=== PATIENT | female | born 2000 | race Caucasian/White ===

== ENCOUNTER 2019-08-27 11:14 | Emergency (ER) | payer OTHER ==
[2019-08-27 11:43] LABS: BILIRUBIN,URINE NEGATIVE (NEGATIVE); GLUCOSE, URINE (UA) NEGATIVE (NEGATIVE); KETONES,URINE (UA) NEGATIVE (NEGATIVE); LEUKOCYTE ESTERASE, URINE NEGATIVE (NEGATIVE); NITRITE,URINE NEGATIVE (NEGATIVE); OCCULT BLOOD,URINE NEGATIVE (NEGATIVE); PROTEIN,URINE NEGATIVE (NEGATIVE); UROBILINOGEN,URINE 0.2 (NORMAL) E.U./dL (NORMAL)
[2019-08-27 11:45] LABS: CLARITY,URINE CLEAR (CLEAR); HCG UR QUAL NEGATIVE
[2019-08-27] MEDS ORDERED: FAMOTIDINE 20 MG/2 ML VIAL IVP STA (12:07)
[2019-08-27] MEDS ORDERED: SODIUM CHLORIDE 0.9% 1,000 ML IV ONE (12:07)
--- NOTE | 2019-08-27 12:07 | ED Physician Documentation ---
PD HPI NVD - Stated complaint Stated Complaint: FEVER/VOMITING BLOOD - Chief complaint Chief Complaint: Abd Pain - History obtained from History obtained from: Patient - History of Present Illness Timing - onset: How many days ago (3) Timing - duration: Days Timing - details: Gradual onset Associated symptoms: Fever, Abdominal pain, Hematemesis, Dizzy. No: Near syncope / syncope Contributing factors: No: Sick contact, Bad food Similar symptoms before: Work up / diagnostics Recently seen: Clinic - Additonal information Additional information: This is a 18-year-old who presents with complaints for the past 3 days she is been vomiting and had a fever up to 103 2 days ago. Today she started vomiting what looked red and then was coffee-ground so they sent her here from the [facility] based on that description of her vomiting. She says she is dizzy whenever she is throwing up. She is been experiencing a lot of "stomach problems" since at least March. She is been vomiting. She is been worked up with a pelvic ultrasound and CT of the abdomen and pelvis none of which have shown anything. All of these have been done on the [facility]. The patient is taking ibuprofen took 400 mg around 630 this morning. She also took DayQuil this morning just because she thinks that makes her feel better. She ate some saltine crackers. Denies or STDs although her last menstrual. Was July 22 she is irregular even though she is on oral contraceptives. Patient has tried Zofran with some relief of her symptoms as well as Tums. To her knowledge she has not been tested for H. pylori or had an endoscopy. She is not currently taking any acid blockers. She denies sore throat, coughing, stuffy nose or loss of consciousness. Review of Systems Constitutional: reports: Fever Nose: denies: Congestion Throat: denies: Sore throat Cardiac: denies: Chest pain / pressure, Palpitations Respiratory: denies: Dyspnea, Cough GI: reports: Abdominal Pain, Nausea, Vomiting, Hematemesis : reports: Irregular menses. denies: Dysuria Skin: denies: Rash Neurologic: denies: Focal weakness, Syncope PD PAST MEDICAL HISTORY - Past Medical History Past Medical History: No - Past Surgical History Past Surgical History: Yes HEENT: Tonsil/Adenoidectomy - Present Medications Home Medications: Ambulatory Orders Medication Instructions Recorded Confirmed Famotidine [Pepcid] 20 mg PO BID #60 tablet 08/27/19 Ondansetron Odt [Zofran] 4 mg TL Q6H PRN #10 tablet 08/27/19 - Allergies Allergies/Adverse Reactions: Allergies Allergy/AdvReac Type Severity Reaction Status Date / Time Penicillins Allergy Rash Verified 08/27/19 11:30 - Social History Does the pt smoke?: No Smoking Status: Never smoker Does the pt drink ETOH?: No Does the pt have substance abuse?: No - Immunizations Immunizations are current?: Yes PD ED PE NORMAL - Vitals Vital signs reviewed: Yes - General General: Alert and oriented X 3, No acute distress, Well developed/nourished - HEENT HEENT: Atraumatic, PERRL, Moist mucous membranes, Other (No scleral icterus) - Neck Neck: Thyroid normal - Cardiac Cardiac: RRR, No murmur, Strong equal pulses - Respiratory Respiratory: No respiratory distress, Clear bilaterally - Abdomen Abdomen: Normal bowel sounds, Soft, Non tender, No organomegaly - Derm Derm: Normal color, Warm and dry, No rash - Extremities Extremities: No deformity, No edema - Neuro Neuro: Alert and oriented X 3, No motor deficit, No sensory deficit, Normal speech - Psych Psych: Normal mood, Normal affect Results - Vitals Vitals: Vital Signs - 24 hr 08/27/19 08/27/19 08/27/19 11:18 11:21 13:47 Temperature 36.8 C 36.4 C L Heart Rate 71 58 L 51 L Respiratory 14 16 18 Rate Blood Pressure 110/64 102/61 105/63 O2 Saturation 100 100 97 Oxygen O2 Source Room air - Labs Labs: Laboratory Tests 08/27/19 08/27/19 08/27/19 11:30 12:05 12:05 WBC 8.6 RBC 4.45 Hgb 12.0 Hct 36.3 L MCV 81.6 MCH 27.0 MCHC 33.1 RDW 14.3 Plt Count 327 MPV 8.4 Neut # (Auto) 4.6 Lymph # (Auto) 2.3 [place] # (Auto) 0.4 Eos # (Auto) 1.1 H Baso # (Auto) 0.1 Absolute Nucleated RBC 0.00 Nucleated RBC % 0.0 Manual Slide Review Indicated RBC Morph Micro Appear 2+ ANISOCYTOSIS Sodium 137 Potassium 3.8 Chloride 100 L Carbon Dioxide 27 Anion Gap 10.0 BUN 15 Creatinine 0.7 Estimated GFR (MDRD) 108 Glucose 104 H Calcium 9.2 Total Bilirubin 0.8 AST 18 ALT 14 Alkaline Phosphatase 49 Total Protein 7.5 Albumin 4.2 Globulin 3.3 Albumin/Globulin Ratio 1.3 Lipase 29 Urine Color YELLOW Urine Clarity CLEAR Urine pH 7.0 Ur Specific [place] 1.020 Urine Protein NEGATIVE Urine Glucose (UA) NEGATIVE Urine Ketones NEGATIVE Urine Occult Blood NEGATIVE Urine Nitrite NEGATIVE Urine Bilirubin NEGATIVE Urine Urobilinogen 0.2 (NORMAL) Ur Leukocyte Esterase NEGATIVE Ur Microscopic Review NOT INDICATED Urine Culture Comments NOT INDICATED Urine HCG, Qual NEGATIVE PD MEDICAL DECISION MAKING - ED course Complexity details: reviewed results, re-evaluated patient, d/w patient ED course: Patient received Zofran orally and Pepcid orally. Attempts at IV access were not successful. Her white blood cell count is normal hemoglobin is normal. She is not and has a negative urinalysis. Chemistries are normal and normal lipase. Patient says she is having pain in the right lower quadrant but on examination she has no tenderness or guarding. [place] CT [place] I do not see any further indication for imaging at this time. She is discharged with instructions to eat a very bland diet for the next 24 hours. She started on Pepcid and given a prescription for Zofran. [place] if the pain is continuing or return here if her symptoms are significantly worsening. Departure - Departure Disposition: 01 Home, Self Care Clinical Impression: Vomiting Qualifiers: Vomiting type: unspecified Vomiting Intractability: unspecified Nausea presence: unspecified Qualified Code(s): R11.10 - Vomiting, unspecified Abdominal pain Qualifiers: Abdominal location: unspecified location Qualified Code(s): R10.9 - Unspecified abdominal pain Condition: Good Instructions: ED Abdominal Pain Unkn Cause, ED Nausea Vomiting Follow-Up: [facility] [Provider Group] Prescriptions: Famotidine [Pepcid] 20 mg PO BID #60 tablet Ondansetron Odt [Zofran] 4 mg TL Q6H PRN #10 tablet PRN Reason: Nausea / Vomiting Comments: Eat a BRAT (bananas, rice, applesauce, toast) diet for the next 24 hours. Take the Pepcid twice a day as prescribed. Use Zofran if needed for nausea or vomiting. If you see bright red blood in any emesis you should return to the emergency department for reevaluation. Otherwise [place] Discharge Date/Time: 08/27/19 14:03
[2019-08-27 12:12] LABS: BASOPHILS # (AUTO) 0.1 10^3/uL (0.0-0.1); EOSINOPHILS # (AUTO) 1.1 10^3/uL (0.0-0.7); EOSINOPHILS % (AUTO) 13.2 %; LYMPHOCYTES # (AUTO) 2.3 10^3/uL (1.5-3.5); MEAN CORPUSCULAR HGB CONC 33.1 g/dL (32.0-36.0); MEAN CORPUSCULAR VOLUME 81.6 fL (81.0-99.0); MEAN PLATELET VOLUME 8.4 fL (7.9-10.8); MONOCYTES # (AUTO) 0.4 10^3/uL (0.0-1.0); MONOCYTES % (AUTO) 4.8 %; NEUTROPHILS # (AUTO) 4.6 10^3/uL (1.5-6.6); NEUTROPHILS % (AUTO) 53.7 %; PLT - PLATELET COUNT 327 10^3/uL (130-450); RED BLOOD COUNT 4.45 10^6/uL (4.20-5.40); RED CELL DISTRIBUTION WIDTH 14.3 % (12.0-15.0); WHITE BLOOD COUNT 8.6 x10^3/uL (4.8-10.8)
[2019-08-27 12:25] LABS: ALBUMIN 4.2 g/dL (3.2-5.5); ALBUMIN/GLOBULIN RATIO 1.3 (1.0-2.2); BILIRUBIN,TOTAL 0.8 mg/dL (0.2-1.0); CALCIUM 9.2 mg/dL (8.5-10.3); CREATININE 0.7 mg/dL (0.4-1.0); TOTAL PROTEIN 7.5 g/dL (6.7-8.2)
[2019-08-27] MEDS ORDERED: ONDANSETRON ODT 4 MG TABLET TL STA (12:43)
[2019-08-27] MEDS ORDERED: FAMOTIDINE 20 MG TABLET PO STA (12:43)
[2019-08-27 12:45] LABS: RBC MORPHOLOGY (MULTIPLE) 2+ ANISOCYTOSIS (NORMAL)
[2019-08-27 13:48] VITALS: BP 105/63
== END 2019-08-27 14:03 | disposition home or self-care (01) ==
LOC: ED 11:14
DX: R11.10 Vomiting, unspecified (principal); R10.9 Unspecified abdominal pain
CPT/HCPCS: 36415; 80053; 81003; 81025; 83690; 85025; 99283; A9270; Q0162; 81001; 87086

== ENCOUNTER 2019-10-27 11:56 | Emergency (ER) | payer OTHER ==
[2019-10-27 12:08] VITALS: BP 129/78
[2019-10-27 12:56] LABS: BASOPHILS # (AUTO) 0.1 10^3/uL (0.0-0.1); BASOPHILS % (AUTO) 0.9 %; EOSINOPHILS # (AUTO) 0.5 10^3/uL (0.0-0.7); EOSINOPHILS % (AUTO) 5.7 %; HGB - HEMOGLOBIN 12.2 g/dL (12.0-16.0); LYMPHOCYTES # (AUTO) 2.4 10^3/uL (1.5-3.5); LYMPHOCYTES % (AUTO) 28.2 %; MEAN CORPUSCULAR HEMOGLOBIN 27.5 pg (27.0-31.0); MEAN CORPUSCULAR HGB CONC 33.2 g/dL (32.0-36.0); MEAN CORPUSCULAR VOLUME 82.9 fL (81.0-99.0); MEAN PLATELET VOLUME 8.2 fL (7.9-10.8); MONOCYTES # (AUTO) 0.5 10^3/uL (0.0-1.0); MONOCYTES % (AUTO) 5.6 %; NEUTROPHILS % (AUTO) 59.2 %; PLT - PLATELET COUNT 355 10^3/uL (130-450); RED BLOOD COUNT 4.44 10^6/uL (4.20-5.40); WHITE BLOOD COUNT 8.4 x10^3/uL (4.8-10.8)
[2019-10-27 13:10] LABS: ACETAMINOPHEN < 10 ug/mL (10-30); ALBUMIN 4.3 g/dL (3.2-5.5); ALBUMIN/GLOBULIN RATIO 1.4 (1.0-2.2); ALKALINE PHOSPHATASE 64 IU/L (42-121); ALT ALANINE AMINOTRANSFERASE 16 IU/L (10-60); AST ASPARTATE AMINOTRANSFERASE 18 IU/L (10-42); BILIRUBIN,TOTAL 0.6 mg/dL (0.2-1.0); BUN - BLOOD UREA NITROGEN 14 mg/dL (6-20); CALCIUM 9.5 mg/dL (8.5-10.3); CARBON DIOXIDE - CO2 26 mmol/L (21-32); CHLORIDE 107 mmol/L (101-111); CREATININE 0.6 mg/dL (0.4-1.0); GFR - MDRD 127 (>89); GLUCOSE 110 mg/dL (70-100); LIPASE 32 U/L (22-51); SALICYLATE < 6.0 mg/dL; SODIUM 141 mmol/L (135-145); TOTAL PROTEIN 7.4 g/dL (6.7-8.2)
[2019-10-27 13:18] LABS: MUDS CUTOFF CONCENTRATIONS CUTOFF CONC BELOW:
--- NOTE | 2019-10-27 13:18 | ED Physician Documentation ---
PD HPI [facility]AL NEURO - Stated complaint Stated Complaint: TREMORS - Chief complaint Chief Complaint: Neuro - History obtained from History obtained from: Patient (2 days ago she started sertraline, 50 mg. Starting last night she has had muscle spasms and involuntary shaking. Its better now than it was earlier. She had never had this before. She few did feel panicky earlier today. No shivers. No fevers.) Review of Systems Constitutional: denies: Fever, Chills, Myalgias, Fatigue Nose: denies: Rhinorrhea / runny nose, Congestion Respiratory: denies: Dyspnea, Cough GI: denies: Nausea, Vomiting, Diarrhea PD PAST MEDICAL HISTORY - Past Surgical History Past Surgical History: Yes HEENT: Tonsil/Adenoidectomy - Present Medications Home Medications: Ambulatory Orders Medication Instructions Recorded Confirmed Famotidine [Pepcid] 20 mg PO BID #60 tablet 08/27/19 Ondansetron Odt [Zofran] 4 mg TL Q6H PRN #10 tablet 08/27/19 - Allergies Allergies/Adverse Reactions: Allergies Allergy/AdvReac Type Severity Reaction Status Date / Time Penicillins Allergy Rash Verified 10/27/19 12:04 - Social History Does the pt smoke?: No Smoking Status: Never smoker Does the pt drink ETOH?: No Does the pt have substance abuse?: No - Immunizations Immunizations are current?: Yes PD ED PE NORMAL - Vitals Vital signs reviewed: Yes - General General: Alert and oriented X 3, No acute distress, Other (Well-appearing 19-year-old woman laying in bed in no distress, she has no tremor.) - HEENT HEENT: PERRL, EOMI - Neck Neck: Supple, no meningeal sign, No bony TTP - Cardiac Cardiac: RRR, No murmur - Respiratory Respiratory: No respiratory distress, Clear bilaterally - Abdomen Abdomen: Non tender - Extremities Extremities: No deformity, No tenderness to palpate, Normal ROM s pain, Other (Lower extremity reflexes are normal without clonus or hyperreflexia.) - Neuro Neuro: Alert and oriented X 3, No motor deficit, No sensory deficit, Normal speech Results - Vitals Vitals: Vital Signs - 24 hr 10/27/19 10/27/19 11:59 12:12 Temperature 36.8 C Heart Rate 69 55 L Respiratory 14 15 Rate Blood Pressure 129/78 129/78 O2 Saturation 98 99 Oxygen O2 Source Room air - Labs Labs: Laboratory Tests 10/27/19 10/27/19 10/27/19 12:49 12:49 12:49 WBC 8.4 RBC 4.44 Hgb 12.2 Hct 36.8 L MCV 82.9 MCH 27.5 MCHC 33.2 RDW 13.0 Plt Count 355 MPV 8.2 Neut # (Auto) 5.0 Lymph # (Auto) 2.4 [place] # (Auto) 0.5 Eos # (Auto) 0.5 Baso # (Auto) 0.1 Absolute Nucleated RBC 0.00 Nucleated RBC % 0.0 Sodium 141 Potassium 4.0 Chloride 107 Carbon Dioxide 26 Anion Gap 8.0 BUN 14 Creatinine 0.6 Estimated GFR (MDRD) 127 Glucose 110 H Calcium 9.5 Total Bilirubin 0.6 AST 18 ALT 16 Alkaline Phosphatase 64 Total Protein 7.4 Albumin 4.3 Globulin 3.1 Albumin/Globulin Ratio 1.4 Lipase 32 TSH 0.82 Urine Color Urine Clarity Urine pH Ur Specific [place] Urine Protein Urine Glucose (UA) Urine Ketones Urine Occult Blood Urine Nitrite Urine Bilirubin Urine Urobilinogen Ur Leukocyte Esterase Ur Microscopic Review Urine Culture Comments Urine HCG, Qual Salicylates < 6.0 Urine Opiates Screen Ur Oxycodone Screen Urine Methadone Screen Ur Propoxyphene Screen Acetaminophen < 10 L Ur Barbiturates Screen Ur Tricyclics Screen Ur Phencyclidine Scrn Ur Amphetamine Screen U Methamphetamines Scrn U Benzodiazepines Scrn Urine Cocaine Screen U Cannabinoids Screen Ethyl Alcohol < 5.0 10/27/19 10/27/19 13:11 13:11 WBC RBC Hgb Hct MCV MCH MCHC RDW Plt Count MPV Neut # (Auto) Lymph # (Auto) [place] # (Auto) Eos # (Auto) Baso # (Auto) Absolute Nucleated RBC Nucleated RBC % Sodium Potassium Chloride Carbon Dioxide Anion Gap BUN Creatinine Estimated GFR (MDRD) Glucose Calcium Total Bilirubin AST ALT Alkaline Phosphatase Total Protein Albumin Globulin Albumin/Globulin Ratio Lipase TSH Urine Color YELLOW Urine Clarity CLEAR Urine pH 6.0 Ur Specific [place] 1.025 1.025 Urine Protein NEGATIVE Urine Glucose (UA) NEGATIVE Urine Ketones NEGATIVE Urine Occult Blood NEGATIVE Urine Nitrite NEGATIVE Urine Bilirubin NEGATIVE Urine Urobilinogen 0.2 (NORMAL) Ur Leukocyte Esterase NEGATIVE Ur Microscopic Review NOT INDICATED Urine Culture Comments NOT INDICATED Urine HCG, Qual NEGATIVE Salicylates Urine Opiates Screen NEGATIVE Ur Oxycodone Screen NEGATIVE Urine Methadone Screen NEGATIVE Ur Propoxyphene Screen NEGATIVE Acetaminophen Ur Barbiturates Screen NEGATIVE Ur Tricyclics Screen NEGATIVE Ur Phencyclidine Scrn NEGATIVE Ur Amphetamine Screen NEGATIVE U Methamphetamines Scrn NEGATIVE U Benzodiazepines Scrn NEGATIVE Urine Cocaine Screen NEGATIVE U Cannabinoids Screen NEGATIVE Ethyl Alcohol PD MEDICAL DECISION MAKING - ED course ED course: 19-year-old woman with tremors a day after starting sertraline. Better now. She is advised to stop the sertraline. No overt evidence of severe serotonin syndrome. Departure - Departure Disposition: 01 Home, Self Care Clinical Impression: Occasional tremors Adverse effect of sertraline Qualifiers: Encounter type: initial encounter Qualified Code(s): T43.225A - Adverse effect of selective serotonin reuptake inhibitors, initial encounter Condition: Good Record reviewed to determine appropriate education?: Yes Comments: As discussed based on the timing it seems that your tremoring is likely due to the new medication you are on. I would stop that pending [place] Return for new or worsening symptoms.
[2019-10-27 13:22] LABS: BILIRUBIN,URINE NEGATIVE (NEGATIVE); GLUCOSE, URINE (UA) NEGATIVE (NEGATIVE); KETONES,URINE (UA) NEGATIVE (NEGATIVE); LEUKOCYTE ESTERASE, URINE NEGATIVE (NEGATIVE); NITRITE,URINE NEGATIVE (NEGATIVE); OCCULT BLOOD,URINE NEGATIVE (NEGATIVE); PROTEIN,URINE NEGATIVE (NEGATIVE); UROBILINOGEN,URINE 0.2 (NORMAL) E.U./dL (NORMAL)
[2019-10-27 13:23] LABS: CLARITY,URINE CLEAR (CLEAR); HCG UR QUAL NEGATIVE
[2019-10-27 13:31] LABS: AMPHETAMINE SCREEN,URINE NEGATIVE (NEGATIVE); BENZODIAZEPINES SCREEN, URINE NEGATIVE (NEGATIVE); COCAINE SCREEN URINE NEGATIVE (NEGATIVE); METHADONE SCREEN, URINE NEGATIVE (NEGATIVE); METHAMPHETAMINES SCREEN, URINE NEGATIVE (NEGATIVE); OPIATE SCREEN, URINE NEGATIVE (NEGATIVE); OXYCODONE SCREEN, URINE NEGATIVE (NEGATIVE); PROPOXYPHENE SCREEN, URINE NEGATIVE (NEGATIVE); TRICYCLIC ANTIDEPRESSANT,URINE NEGATIVE (NEGATIVE)
== END 2019-10-27 14:15 | disposition home or self-care (01) ==
LOC: EDUNIT# → ED 11:56
DX: G25.1 Drug-induced tremor (principal); T43.225A Adverse effect of selective serotonin reuptake inhibitors, initial encounter
CPT/HCPCS: 36415; 80053; 80306; 80307; 80320; 80329; 81001; 81003; 81025; 83690; 84443; 85025; 87086; 99283; 99284